=== PATIENT | male | born 1960 | race Caucasian/White ===

== ENCOUNTER 2022-03-19 18:57 | Emergency (ER) | payer BC, SELFPAY ==
[2022-03-19 19:14] VITALS: BP 135/78; PULSE 85; RESP 16; TEMP 36.4; O2SAT 99
--- NOTE | 2022-03-19 19:29 | ED.BACK ---
HPI - Back Pain/Injury General Chief Complaint: Back Pain/Injury Stated Complaint: back pain Source: patient Mode of arrival: ambulatory History of Present Illness HPI Narrative: This is a 61 year old male that has been working out and pulled a mucle when he was working with weights and now he is not able to get in with his pcp for some medication to help with the pain and he is not able to exercise. MD elicited complaint: back pain and back injury Related Data Home Medications Medication Instructions Recorded Confirmed aspirin 81 mg chewable tablet 81 mg DAILY 03/19/22 03/19/22 atorvastatin 80 mg tablet 80 mg DAILY 03/19/22 03/19/22 dapagliflozin 5 mg-metformin ER 1 tablet PO DAILY 03/19/22 03/19/22 500 mg tablet,extended release 24hr (Xigduo XR) insulin glargine 100 unit/mL (3 1 unit subcut DIRECTED 03/19/22 03/19/22 mL) subcutaneous pen (Lantus Solostar U-100 Insulin) lisinopril 40 mg tablet 40 mg DAILY 03/19/22 03/19/22 metoprolol tartrate 25 mg tablet 25 mg BID 03/19/22 03/19/22 omeprazole 20 mg capsule,delayed 25 mg DAILY 03/19/22 03/19/22 release Allergies Allergy/AdvReac Type Severity Reaction Status Date / Time No Known Allergies Allergy Mild Verified 03/19/22 19:22 Review of Systems Review of Systems: back pain All systems reviewed & are unremarkable except as noted in HPI and below Exam Narrative: GENERAL:Well-appearing, well-nourished, and in no acute distress. HEAD:Normocephalic, atraumatic. EYES: PERRLA and EOMI. ENT: Nares clear, no rhinorrhea or epistaxis. Mucous membranes moist. CHEST: ease of rise and fall of chest wall . No respiratory distress. HEART: Regular rate and rhythm. Normal peripheral pulses. ABDOMEN: Soft, nontender, nondistended, normal active bowel sounds. EXTREMITIES: Normal range of motion. No edema.back pain with ambulation SKIN: Warm, dry, no rash. NEURO: No focal deficits. Alert and oriented x3. Course Course Level of Care: Express Care Visit Vital Signs Vital signs: Vital Signs Temperature 97.5 F L 03/19/22 19:14 Pulse Rate 85 03/19/22 19:14 Respiratory Rate 16 10/18/22 19:14 Blood Pressure 135/78 03/19/22 19:14 Pulse Oximetry 99 03/19/22 19:14 Oxygen Delivery Room Air 03/19/22 19:14 Temperature 97.5 F L 03/19/22 19:14 Pulse Rate 85 03/19/22 19:14 Respiratory Rate 16 03/19/22 19:14 Blood Pressure 135/78 03/19/22 19:14 Pulse Oximetry 99 03/19/22 19:14 Oxygen Delivery Room Air 03/19/22 19:14 MDM - Back Pain/Injury Differential Diagnosis Differential diagnosis: Likely lumbar radiculopathy, sciatica, strain of lumbar region, renal colic, pyelonephritis and thoracic back pain Discharge Plan Discharge Clinical Impression: Strain of lumbar region Patient Disposition: Home, Self-Care Condition: Stable Instructions: Antibiotic Form, Muscle Strain (DC), Musculoskeletal Pain (ED) Additional Instructions: Avoid weight bearing until the pain subsides. Ice to the area 20-30 minutes 4-6 times a day He Tylenol for lesser pain Ibuprofen regularly for the next 2-3 days for the inflammation Follow up with your primary care provider if the condition is not improving within 1 week or sooner if the condition worsens with numbness, tingling, decrease sensation with weakness to seek ER. Prescriptions: New prednisone 20 mg tablet 20 mg PO DAILY Qty: 10 0RF cyclobenzaprine 10 mg tablet 10 mg PO TID PRN (Reason: muscle spasm) Qty: 20 0RF No Action atorvastatin 80 mg tablet 80 mg DAILY omeprazole 20 mg capsule,delayed release(DR/EC) 25 mg DAILY aspirin 81 mg tablet,chewable 81 mg DAILY lisinopril 40 mg tablet 40 mg DAILY metoprolol tartrate 25 mg tablet 25 mg BID insulin glargine [Lantus Solostar U-100 Insulin] 100 unit/mL (3 mL) insulin pen 1 unit SUBCUT DIRECTED Xigduo XR 5-500 mg tablet, IR - ER, biphasic 24hr 1 tablet PO
== END 2022-03-19 19:14 | disposition home or self-care (01) ==
PROVIDERS: Emergency Provider Nurse Practitioner Family; PCP Family Medicine
DX: S39.012A Strain of muscle, fascia and tendon of lower back, initial encounter (principal); X58.XXXA Exposure to other specified factors, initial encounter; Z79.82 Long term (current) use of aspirin
CPT/HCPCS: 99213; G0463